=== PATIENT | male | born 1995 | race Caucasian/White ===

== ENCOUNTER 2021-04-25 19:53 | Emergency (ER) | payer OTHER, SELFPAY ==
[2021-04-25 19:55] VITALS: BP 140/96; PULSE 114; RESP 16; TEMP 36; O2SAT 98; BMI 35.6
--- NOTE | 2021-04-25 20:16 | ED.VIS.GI ---
HPI HPI - GI History of Present Illness Chief Complaint: Abd Pain Narrative Narrative: 25-year-old male presenting with a small focal area of right lower quadrant abdominal distention this is just lateral to the midline. Patient states it does not hurt. He states he had a little bit of diarrhea recently but states that he also has been changing his diet from soft food to regular food off and on. He denies any fever. Patient has no urinary complaints. Patient has a distant history of appendectomy but otherwise is healthy. He states he started to google his symptoms and became very nervous and worked himself up and vomited once. He went to the urgent care where he was initially evaluated however he states that they told him to come to the emergency room. He states he felt as if they were trying to get him out the door because it was time for them to close, and they also told him multiple things that could be wrong with him before he left which made him even more nervous. PFSH PFSH Medical History no medical history Allergy/AdvReac Type Severity Reaction Status Date / Time No Known Allergies Allergy Verified 04/25/21 19:54 Social History Smoking Status: Unknown if ever smoked ROS ROS ED Constitutional Constitutional ED: Denies chills or fever(s) ENT ENT ED: Denies rhinorrhea or sore throat Cardiovascular Cardiovascular: Denies chest pain or palpitations Respiratory/Chest Respiratory/Chest: Denies cough or dyspnea Gastrointestinal Gastrointestinal: Reports diarrhea, nausea and vomiting; Denies abdominal pain or constipation Genitourinary Genitourinary ED: Denies dysuria or hematuria Musculoskeletal Musculoskeletal: Denies arthralgias or myalgias Integumentary Denies abscess or rash Neurologic Neurologic: Denies headache(s) or weakness EXAM Physical Exam Const Vital Signs: 04/25/21 19:55 Temperature 96.8 F L Temperature Source Temporal Pulse Rate 114 H Respiratory Rate 16 Blood Pressure 140/96 H Blood Pressure Mean 110 Pulse Ox 98 Oxygen Delivery Method Room Air Positive well nourished General Appearance ED: NAD; Negative for pallor HEENT Reports moist mucous membranes normocephalic and atraumatic Eyes PERRL and EOMs intact bilaterally General Eye ED: Negative for scleral icterus Cardio regular rate and regular rhythm GI non-tender and non-distended Palpation: soft Back/Spine no CVA tenderness Neuro Sensorium / Orientation: alert and oriented to person Psych mental status grossly normal and thought process normal Skin General Skin Exam: Negative for jaundice or pallor MDM MDM MDM Narrative Medical decision making narrative: Patient counseled that his vital signs are normal with exception of a slight tachycardia and hypertension and he admits to being nervous because he has been googling things that could be wrong with him in the urgent care told him basically that these could be true when he did come to the emergency room. Otherwise his abdominal exam is completely benign and he has no pain at all. Other than some mild diarrhea which is contributed to him changing his diet around he does not have any symptoms. He did vomit earlier but states this was because he was so worked up because he was googling things actually wrong with it. Patient has no other health issues. I counseled the patient that his abdominal exam is benign I do not believe he needs work-up or CAT scan and he does not appear to have any kind of hernia or pulsatile mass of any concern. He felt reassured. I counseled him that there is some change such as fever, increasing pain, anything abnormal that would cause some concern he could come return to the ER for repeat evaluation but at this time this is not needed. He is completely amenable to this and after discussing this with he and his significant other was to be discharged home. Impression: 1. Feared complaint not found Discharge Plan Triage Chief Complaint: Abd Pain Other Complaint: Diarrhea ED Provider: Isra Art Dx/Rx/DC Orders Instructions: ED Symptoms With Uncertain Cause [facility] [[facility] - Disposition Disposition: Home, Self Care Discharge Date/Time: 04/25/21 20:37
== END 2021-04-25 20:37 | disposition home or self-care (01) ==
LOC: ED 20:35
PROVIDERS: Emergency Provider Student in an Organized Health Care Education/Training Program
DX: Z71.1 Person with feared health complaint in whom no diagnosis is made (principal); R19.7 Diarrhea, unspecified; R10.31 Right lower quadrant pain
CPT/HCPCS: 99282